=== PATIENT | female | born 1975 | race Caucasian/White ===

== ENCOUNTER 2017-06-02 06:44 | Day surgery (SDC) | payer OTHER ==
[~2017-06-02] VITALS: Ht 162.6 cm; Wt 54.1 kg
[2017-07-15] MEDS ORDERED: PANT40 (12:49)
== END 2017-06-02 08:57 | disposition home or self-care (01) ==
LOC: ORSCSDS 06:44
PROVIDERS: Internal Medicine Gastroenterology
PROC: 0D758ZZ Dilation of Esophagus, Via Natural or Artificial Opening Endoscopic (ICD-10-PCS; principal; 2017-06-02 08:00)
DX: R13.10 Dysphagia, unspecified (principal); K29.70 Gastritis, unspecified, without bleeding; K20.0 Eosinophilic esophagitis; F17.210 Nicotine dependence, cigarettes, uncomplicated
CPT/HCPCS: C1726; J0330; J1980; J2405

== ENCOUNTER 2017-07-21 09:00 | Day surgery (SDC) | payer OTHER ==
[~2017-07-21] VITALS: Ht 162.6 cm; Wt 53.8 kg
[~2017-07-21 09:00] MED LIST: PANT40
== END 2017-07-22 10:38 | disposition home or self-care (01) ==
LOC: ORSCSDS 09:00
PROVIDERS: Internal Medicine Gastroenterology
PROC: 0DB58ZX Excision of Esophagus, Via Natural or Artificial Opening Endoscopic, Diagnostic (ICD-10-PCS; principal; 2017-07-21 10:00)
DX: R13.10 Dysphagia, unspecified (principal); K20.0 Eosinophilic esophagitis; Z79.899 Other long term (current) drug therapy
CPT/HCPCS: 88305; J7120

== ENCOUNTER 2019-10-21 08:01 | Day surgery (SDC) | payer OTHER ==
--- NOTE | 2019-10-21 08:48 | NUR ---
PT INTO STEP/RADIOLOGY. PT IS GETTING READY IN RADIOLOGY DEPARTMENT TODAY WITH KLARISSA RN DUE TO NEW CORONAVIRUS PROTOCOL. PT AMBULATED INTO STEP.
--- NOTE | 2019-10-21 09:07 | NUR ---
PT GIVEN 5 MG METOPROLOL IV PUSH FOR HR >62. PT TOLERATED WELL.
--- NOTE | 2019-10-21 09:18 | NUR ---
PT INTO RADIOLOGY VIA FLORESITA.
--- NOTE | 2019-10-21 09:38 | NUR ---
PROCEDURE FINISHED. PT TOLERATED WELL.
--- NOTE | 2019-10-21 10:06 | NUR ---
Patient up to Ambulate independently. Gait steady. Discharge instructions reviewed with patient. Patient verbalizes understanding. Copy given to patient to take home. PT WALKED TO VEHICLE BY RN.
== END 2019-10-21 23:08 | disposition home or self-care (01) ==
LOC: CT 08:01 → ORD 08:01 → CT 09:00 → ORD 23:08
DX: R07.9 Chest pain, unspecified (principal); R94.30 Abnormal result of cardiovascular function study, unspecified; J45.909 Unspecified asthma, uncomplicated; F41.9 Anxiety disorder, unspecified; Z79.899 Other long term (current) drug therapy; F17.210 Nicotine dependence, cigarettes, uncomplicated; Z88.6 Allergy status to analgesic agent; Z91.018 Allergy to other foods
CPT/HCPCS: 75574; Q9967

== ENCOUNTER → 2022-09-26 | Outpatient (CLI) | payer OTHER ==
[2022-09-26 19:28] LABS: BASOPHILS ABSOLUTE AUTO 0.05 K/mm3 (0.00-0.23); BASOPHILS PERCENT AUTO 1 % (0-2); EOSINOPHILS ABSOLUTE AUTO 0.12 K/mm3 (0.00-0.68); EOSINOPHILS PERCENT AUTO 3 % (0-6); Hematocrit 39.4 % (33.0-51.0); Hemoglobin 13.8 g/dL (11.5-16.0); IMMATURE GRAN ABSOLUTE AUTO 0.01 K/mm3 (0.00-0.10); IMMATURE GRAN PERCENT AUTO 0 % (0-1); LYMPHOCYTES PERCENT AUTO 30 % (21-46); MONOCYTES ABSOLUTE AUTO 0.36 K/mm3 (0.16-1.47); MONOCYTES PERCENT AUTO 8 % (4-13); Mean Corpuscular HGB 33.6 pg (26.0-34.0); Mean Corpuscular Volume 96 fL (80-100); Mean Platelet Volume 10.6 fL (9.1-12.4); NEUTROPHILS ABSOLUTE AUTO 2.75 K/mm3 (1.96-9.15); NEUTROPHILS PERCENT AUTO 59 % (41-73); Platelet Count 289 K/mm3 (150-400); RDW Coefficient Variation 12.3 % (11.7-14.2); RDW Standard Deviation 42.9 fL (35.1-46.3); Red Blood Cell Count 4.11 M/mm3 (3.80-5.20); White Blood Cell Count 4.69 K/mm3 (4.00-11.30)
[2022-09-26 19:50] LABS: Ferritin, Serum 45 ng/mL (8-252); Iron Serum 147 ug/dL (50-170); Percent Saturation 48.8 % (15.0-50.0); Total Iron Binding Capacity 301 ug/dL (250-450)
[2022-09-26 20:11] LABS: Alanine Aminotransfer (ALT/SGP 20 U/L (12-78); Albumin, Blood 3.9 g/dL (3.4-5.0); Albumin/Globulin Ratio 1.2 (0.8-1.8); Alk Phos 49 U/L (50-136); Anion Gap 5 mmol/L (6-16); Aspartate Aminotrans (AST/SGOT 13 U/L (12-37); Bilirubin, Total 0.7 mg/dL (0.1-1.0); Blood Urea Nitrogen 15 mg/dL (8-24); Bun/Creatinine Ratio 22.2 (12.0-20.0); CHOL/HDL RATIO 2.2; CO2, Blood 21 mmol/L (21-32); Calcium, Blood 8.5 mg/dL (8.5-10.1); Chloride, Blood 112 mmol/L (98-108); Cholesterol 163 mg/dL (50-200); Creatinine, Blood 0.68 mg/dL (0.40-1.00); Globulin, Blood 3.2 g/dL (2.2-4.0); Glomerular Filtration Rate 109 (60-); Glucose, Blood 98 mg/dL (70-99); HDL Cholesterol 74 mg/dL (>39); Low Density Lipoprotein Chol 77 mg/dL (0-110); Potassium, Blood 3.8 mmol/L (3.5-5.5); Sodium, Blood 138 mmol/L (136-145); Total Protein, Blood 7.1 g/dL (6.4-8.2); Triglycerides 58 mg/dL (30-160); Very Low Density Lipoprot Chol 11 mg/dL (6-32)
== END | disposition home or self-care (01) ==
LOC: LAB SHORT 18:43 → LAB 18:43
PROVIDERS: Family Medicine
DX: Z51.81 Encounter for therapeutic drug level monitoring (principal); Z79.899 Other long term (current) drug therapy
CPT/HCPCS: 80053; 80061; 82306; 82607; 82728; 82746; 83540; 83550; 84443; 85025